=== PATIENT | female | born 1945 | race Caucasian/White ===

== ENCOUNTER 2017-07-19 07:46 | Emergency (ER) | payer MEDICARE, MEDICAID ==
[2017-07-19] MEDS ORDERED: oxyCOD/ACETAMIN 5 MG/325 MG TABLET PO STA (08:30)
--- NOTE | 2017-07-19 08:34 | ED Physician Documentation ---
History of Present Illness - Stated complaint Stated Complaint: L LEG PAIN - Chief complaint Chief Complaint: Ext Problem - Additonal information Additional information: hx from pt 72 female healthy insidious oonset L foot pain states it started three days ago intially felt like hot liquid on her lower leg and foot now localized to medial ankel and foot hurts to touch hurts to move no trauma no open wounds no fever no CP no SOA no calf swelling no hx same no hx gout or sciatica per pt Review of Systems Constitutional: denies: Fever Cardiac: denies: Chest pain / pressure Respiratory: denies: Dyspnea Skin: denies: Rash, Abrasion (s), Laceration (s) Musculoskeletal: reports: Extremity pain Neurologic: denies: Focal weakness, Numbness Endocrine: denies: Easy bruising / bleeding Immunocompromised: denies: Immunocompromised PD PAST MEDICAL HISTORY - Past Medical History Past Medical History: Yes Musculoskeletal: Osteoarthritis - Past Surgical History Past Surgical History: Yes - Present Medications Home Medications: Ambulatory Orders Medication Instructions Recorded Confirmed HYDROcod/ACETAM 5/325 [[place] 5/325] 1 - 2 ea PO Q6H PRN #15 tablet 12/10/15 diazePAM [Valium] 5 mg PO TID PRN #15 tablet 12/10/15 Oxycodone HCl/Acetaminophen 1 each PO Q6HR PRN #10 tablet 07/19/17 [Percocet 5-325 mg Tablet] predniSONE [Deltasone] 40 mg PO DAILY 5 Days 07/19/17 - Allergies Allergies/Adverse Reactions: Allergies Allergy/AdvReac Type Severity Reaction Status Date / Time No Known Drug Allergies Allergy Verified 12/10/15 20:21 - Social History Does the pt smoke?: No Smoking Status: Never smoker Does the pt drink ETOH?: No Does the pt have substance abuse?: No - Immunizations Immunizations are current?: Yes PD ED PE NORMAL - Vitals Vital signs reviewed: Yes - Cardiac Cardiac: RRR - Respiratory Respiratory: No respiratory distress, Clear bilaterally - Derm Derm: Other (see ext exam) - Extremities Extremities: Other (thigh and calf non tender no swelling, tender to palpate and slight erythema and edema over medial mall, ankle jt s effusion and able to be ranged s sig pain, also some TTP but without swelling or erythema to instep, no deformity, MSV intact) Results - Vitals Vitals: Vital Signs - 24 hr 07/19/17 07:57 Temperature 36.6 C Heart Rate 88 Respiratory 20 Rate Blood Pressure 137/106 H O2 Saturation 96 Oxygen O2 Source Room air - Rads (name of study) ankle Radiology: See rad report (nl) foot Radiology: See rad report (DJD 1st MT) PD MEDICAL DECISION MAKING - ED course ED course: insidious pain, initially diffuse now more loaclised the medial mall, some erythema and swelling but no fever streaking or open wound to suggest infection , feel gout and septic jt unlikely as pt is able to range ankle fairly well without sig pain and does not have an effusion does have arthritis on xray but pain is atypical for arthritis not really dermatoma or typical of neuro etiology will try prednsione for inflammation and percocet for pain and ask pt to see PMD or return to see me tomorrow night for a recheck Departure - Departure Disposition: Home, Self Care Clinical Impression: Pain in extremity Qualifiers: Extremity pain location: lower extremity Laterality: left Qualified Code(s): M79.605 - Pain in left leg Condition: Good Follow-Up: Vania Aguero ARNP [Primary Care Provider] - Prescriptions: Oxycodone HCl/Acetaminophen [Percocet 5-325 mg Tablet] 1 each PO Q6HR PRN #10 tablet PRN Reason: Severe Pain predniSONE [Deltasone] 40 mg PO DAILY 5 Days Comments: The xrays are fine - no fractures, just some arthritic changes The pain is not typical or sciatica There is some redness and swelling to the inside of the ankle, but the actual ankle joint does not seem to be involved so do not think this is an infected joint or gout. You have no wounds or fever to suggest a skin infection So at this point I am not sure what is causing the pain. For now I recommend we address the symptoms - i have prescribed steroids to decrease the inflammation and pain medication. Since the etiology is unclear, close follow up is going to be very important - it is not uncommon for us to see a patient with a disease process that is initially not clear but over time as symptoms progress, the diagnosis becomes apparent But I would like you to follow up with your PMD tomorrow for a recheck - or if you cannot see your PMD come back and see me after 8 PM tomorrow for a recheck Please also get your blood pressure rechecked - it was high today
[2017-07-19] MEDS ORDERED: oxyCOD/ACETAMIN 5 MG/325 MG TABLET PO ONE (08:45)
--- NOTE | 2017-07-19 09:25 | XRAY Preliminary Report ---
Exam: XR Foot 3 View LT IMPRESSION: Mild DJD first metatarsophalangeal joint [facility] SITE ID: [id number]
--- NOTE | 2017-07-19 09:25 | XRAY Preliminary Report ---
Exam: XR Ankle 3 View LT IMPRESSION: Normal ankle radiography. [facility] SITE ID: [id number]
--- NOTE | 2017-07-19 09:27 | XRAY Report ---
EXAM: LEFT ANKLE RADIOGRAPHY EXAM DATE: 07/19/2017 09:01 AM. CLINICAL HISTORY: Pain and swelling medially. COMPARISON: None. TECHNIQUE: 3 views. FINDINGS: Bones: Normal. No fractures or bone lesions. Joints: Normal. No effusion. No subluxations. The ankle mortise is normally aligned. Soft Tissues: Mild soft tissue swelling. IMPRESSION: Normal ankle radiography. [facility] Referring Provider Line: [phone] SITE ID: [id number]
--- NOTE | 2017-07-19 09:28 | XRAY Report ---
EXAM: LAST FOOT RADIOGRAPHY EXAM DATE: 07/19/2017 09:01 AM. CLINICAL HISTORY: Pain and swelling medially. COMPARISON: None. TECHNIQUE: 3 views. FINDINGS: Bones: Normal. No fractures or bone lesions. Joints: Osteophyte joint space narrowing first metatarsal phalangeal joint. No subluxations. Soft Tissues: Normal. No soft tissue swelling. IMPRESSION: Mild DJD first metatarsophalangeal joint [facility] Referring Provider Line: [phone] SITE ID: [id number]
[2017-07-19 10:11] VITALS: BP 132/64
== END 2017-07-19 10:12 | disposition home or self-care (01) ==
LOC: ED 07:46
DX: M79.605 Pain in left leg (principal)
CPT/HCPCS: 73610; 73630; 99283; 99284; A9270

== ENCOUNTER 2021-10-10 20:22 | Emergency (ER) | payer MEDICARE, MEDICAID ==
--- NOTE | 2021-10-10 20:36 | ED Physician Documentation ---
History of Present Illness - Stated complaint Stated Complaint: R FOOT TOE PX - Chief complaint Chief Complaint: Ext Problem - History obtained from History obtained from: Patient - History of Present Illness Timing: How many weeks ago (2) Pain level now: 8 Improved by: rest Worsened by: weight-bearing, palpation - Additonal information Additional information: c/o 2 weeks of atraumatic pain to the tip of the right 4th toe. Pain is worse with palpation, weight-bearing. She says she tried to see a burr grinder but her insurance did not cover this particular burr grinder. She says she made an appointment with PMD but that the appointment isn't until December. Review of Systems Constitutional: denies: Fever Musculoskeletal: reports: Extremity pain, Pain with weight bearing. denies: Extremity swelling, Joint swelling Neurologic: denies: Focal weakness, Numbness PD PAST MEDICAL HISTORY - Past Medical History Past Medical History: No Musculoskeletal: Osteoarthritis - Past Surgical History Past Surgical History: Yes - Present Medications Home Medications: Ambulatory Orders Medication Instructions Recorded Confirmed HYDROcod/ACETAM 5/325 [[place] 5/325] 1 - 2 ea PO Q6H PRN #15 tablet 12/10/15 diazePAM [Valium] 5 mg PO TID PRN #15 tablet 12/10/15 Oxycodone HCl/Acetaminophen 1 each PO Q6HR PRN #10 tablet 07/19/17 [Percocet 5-325 mg Tablet] predniSONE [Deltasone] 40 mg PO DAILY 5 Days tablet 07/19/17 cephALEXin [Keflex] 500 mg PO Q6H #28 cap 10/10/21 - Allergies Allergies/Adverse Reactions: Allergies Allergy/AdvReac Type Severity Reaction Status Date / Time No Known Drug Allergies Allergy Verified 10/10/21 20:26 - Social History Does the pt smoke?: No Smoking Status: Never smoker Does the pt drink ETOH?: No Does the pt have substance abuse?: No - Immunizations Immunizations are current?: Yes PD ED PE NORMAL - Vitals Vital signs reviewed: Yes - General General: Alert and oriented X 3, No acute distress, Well developed/nourished - Extremities Extremities: No edema, Other (right 4th toe: mild erythema adjacent to toe nail with TTP of pad of the toe. no obvious swelling, no fluctuance) Results - Vitals Vitals: Vital Signs - 24 hr 10/10/21 10/10/21 20:26 21:15 Temperature 36.5 C 36.8 C Heart Rate 100 64 Respiratory 18 18 Rate Blood Pressure 160/90 H 166/76 H O2 Saturation 96 94 Oxygen O2 Source Room air PD MEDICAL DECISION MAKING - ED course Complexity details: considered differential, d/w patient ED course: c/o 2 weeks of right 4th toe pain without injury. There is no obvious swelling but there is mild erythema adjacent to the lateral nail fold. There is TTP of pad of toe, although there isn't any swelling nor erythema over the toe pad. Will treat for possible paronychia with PO antibiotic. No evidence of drainable collection at this time Departure - Departure Disposition: 01 Home, Self Care Clinical Impression: Paronychia of fourth toe, right Condition: Good Instructions: ED Fingernail Infec Follow-Up: ALEAH SHIN, MSN, SENIOR PRINCIPAL [Primary Care Provider] - (within 3-5 days for recheck) Prescriptions: cephALEXin [Keflex] 500 mg PO Q6H #28 cap Comments: A prescription for cephalexin (antibiotic) has been electronically [facility] in [place]. Take ibuprofen or Aleve for the pain, following label instructions. Discharge Date/Time: 10/10/21 21:16
[2021-10-10] MEDS ORDERED: cephALEXin 250 MG CAPSULE PO STA (20:49)
[2021-10-10 21:16] VITALS: BP 166/76
== END 2021-10-10 21:16 | disposition home or self-care (01) ==
LOC: ED 20:22
DX: L03.031 Cellulitis of right toe (principal)
CPT/HCPCS: 99282; 99283; A9270

== ENCOUNTER 2021-12-17 08:33 | Outpatient (CLI) | payer MEDICARE, MEDICAID ==
[2021-12-17 08:58] LABS: BILIRUBIN,URINE NEGATIVE (NEGATIVE); GLUCOSE, URINE (UA) NEGATIVE (NEGATIVE); KETONES,URINE (UA) NEGATIVE (NEGATIVE); LEUKOCYTE ESTERASE, URINE NEGATIVE (NEGATIVE); NITRITE,URINE NEGATIVE (NEGATIVE); OCCULT BLOOD,URINE TRACE-INTA (NEGATIVE); PH,URINE 5.5 PH (5.0-7.5); PROTEIN,URINE NEGATIVE (NEGATIVE); UROBILINOGEN,URINE 0.2 (NORMAL) E.U./dL (NORMAL)
[2021-12-17 09:06] LABS: BASOPHILS % (AUTO) 0.4 %; EOSINOPHILS % (AUTO) 0.1 %; HCT - HEMATOCRIT 42.3 % (37.0-47.0); HGB - HEMOGLOBIN 14.2 g/dL (12.0-16.0); LYMPHOCYTES # (AUTO) 2.6 10^3/uL (1.5-3.5); LYMPHOCYTES % (AUTO) 32.6 %; MEAN CORPUSCULAR HEMOGLOBIN 31.4 pg (27.0-31.0); MEAN CORPUSCULAR HGB CONC 33.6 g/dL (32.0-36.0); MEAN CORPUSCULAR VOLUME 93.6 fL (81.0-99.0); MEAN PLATELET VOLUME 9.6 fL (7.9-10.8); MONOCYTES # (AUTO) 0.5 10^3/uL (0.0-1.0); MONOCYTES % (AUTO) 6.2 %; NEUTROPHILS # (AUTO) 4.8 10^3/uL (1.5-6.6); NEUTROPHILS % (AUTO) 60.2 %; PLT - PLATELET COUNT 251 10^3/uL (130-450); RED BLOOD COUNT 4.52 10^6/uL (4.20-5.40); RED CELL DISTRIBUTION WIDTH 12.5 % (12.0-15.0); WHITE BLOOD COUNT 7.9 x10^3/uL (4.8-10.8)
[2021-12-17 09:19] LABS: BACTERIA,URINE Few /HPF (None Seen); CLARITY,URINE CLEAR (CLEAR); RBC,URINE 0-5 /HPF (0-5); SQUAMOUS EPITHELIAL CELL,UR MOD Squamous (<= Few); WBC,URINE 0-3 /HPF (0-5)
[2021-12-17 09:27] LABS: THYROID STIMULATING HORMONE 3.4 uIU/mL (0.34-5.60)
[2021-12-17 10:06] LABS: ALBUMIN/GLOBULIN RATIO 1.3 (1.0-2.2); ALKALINE PHOSPHATASE 67 IU/L (42-121); ALT ALANINE AMINOTRANSFERASE 12 IU/L (10-60); AST ASPARTATE AMINOTRANSFERASE 14 IU/L (10-42); BILIRUBIN,TOTAL 0.6 mg/dL (0.2-1.0); BUN - BLOOD UREA NITROGEN 11 mg/dL (6-20); CALCIUM 8.7 mg/dL (8.5-10.3); CARBON DIOXIDE - CO2 28 mmol/L (21-32); CHLORIDE 99 mmol/L (101-111); CHOL/HDL RATIO 4.7 (<4.4); CHOLESTEROL 249 mg/dL; GFR - MDRD 54 (>89); GLUCOSE 95 mg/dL (70-100); HDL CHOLESTEROL 53 mg/dL; LDL CHOLESTEROL,CALCULATED 166 mg/dL; LDL/HDL RATIO 3.1 (<4.4); POTASSIUM 4.2 mmol/L (3.5-5.0); SODIUM 138 mmol/L (135-145); TOTAL PROTEIN 7.2 g/dL (6.7-8.2); TRIGLYCERIDES 148 mg/dL; VLDL CHOLESTEROL 30 mg/dL
== END 2021-12-17 08:34 | disposition home or self-care (01) ==
LOC: LAB 08:33
PROVIDERS: ATTEND Nurse Practitioner
DX: R53.83 Other fatigue (principal); Z13.220 Encounter for screening for lipoid disorders
CPT/HCPCS: 36415; 80053; 80061; 81001; 83721; 84443; 85025; 87086

== ENCOUNTER 2023-04-18 10:11 | Outpatient (CLI) | payer MEDICARE, MEDICAID ==
[2023-04-18 11:42] LABS: BASOPHILS % (AUTO) 0.3 %; EOSINOPHILS % (AUTO) 0.1 %; HCT - HEMATOCRIT 41.9 % (37.0-47.0); HGB - HEMOGLOBIN 13.7 g/dL (12.0-16.0); LYMPHOCYTES # (AUTO) 2.2 10^3/uL (1.5-3.5); LYMPHOCYTES % (AUTO) 24.5 %; MEAN CORPUSCULAR HEMOGLOBIN 32.2 pg (27.0-31.0); MEAN CORPUSCULAR HGB CONC 32.7 g/dL (32.0-36.0); MEAN CORPUSCULAR VOLUME 98.6 fL (81.0-99.0); MEAN PLATELET VOLUME 9.9 fL (7.9-10.8); MONOCYTES # (AUTO) 0.5 10^3/uL (0.0-1.0); MONOCYTES % (AUTO) 5.5 %; NEUTROPHILS # (AUTO) 6.3 10^3/uL (1.5-6.6); NEUTROPHILS % (AUTO) 69.3 %; PLT - PLATELET COUNT 302 10^3/uL (130-450); RED BLOOD COUNT 4.25 10^6/uL (4.20-5.40); RED CELL DISTRIBUTION WIDTH 12.5 % (12.0-15.0); WHITE BLOOD COUNT 9.2 x10^3/uL (4.8-10.8)
[2023-04-18 12:28] LABS: ALBUMIN 3.9 g/dL (3.2-5.5); ALBUMIN/GLOBULIN RATIO 1.4 (1.0-2.2); ALKALINE PHOSPHATASE 72 IU/L (42-121); ALT ALANINE AMINOTRANSFERASE 10 IU/L (10-60); AST ASPARTATE AMINOTRANSFERASE 13 IU/L (10-42); BILIRUBIN,TOTAL 0.6 mg/dL (0.2-1.0); BUN - BLOOD UREA NITROGEN 10 mg/dL (6-20); CALCIUM 8.7 mg/dL (8.5-10.3); CARBON DIOXIDE - CO2 29 mmol/L (21-32); CHLORIDE 105 mmol/L (101-111); CHOL/HDL RATIO 4.1 (<4.4); CHOLESTEROL 229 mg/dL; CREATININE 0.8 mg/dL (0.4-1.0); GFR - MDRD 69 (>89); GLUCOSE 89 mg/dL (70-100); HDL CHOLESTEROL 56 mg/dL; LDL CHOLESTEROL,CALCULATED 136 mg/dL; LDL/HDL RATIO 2.4 (<4.4); POTASSIUM 3.9 mmol/L (3.5-5.0); SODIUM 142 mmol/L (135-145); TOTAL PROTEIN 6.6 g/dL (6.7-8.2); TRIGLYCERIDES 184 mg/dL; VLDL CHOLESTEROL 37 mg/dL
== END 2023-04-18 10:12 | disposition home or self-care (01) ==
LOC: LAB.N 10:11
PROVIDERS: ATTEND Nurse Practitioner
DX: I10 Essential (primary) hypertension (principal); E78.5 Hyperlipidemia, unspecified
CPT/HCPCS: 36415; 80053; 80061; 83721; 85025

== ENCOUNTER 2024-04-24 10:53 | Outpatient (CLI) | payer MEDICARE, MEDICAID ==
[2024-04-24 11:09] LABS: BASOPHILS # (AUTO) 0.1 10^3/uL (0.0-0.1); BASOPHILS % (AUTO) 0.6 %; EOSINOPHILS % (AUTO) 0.5 %; HCT - HEMATOCRIT 41.7 % (37.0-47.0); HGB - HEMOGLOBIN 13.8 g/dL (12.0-16.0); LYMPHOCYTES # (AUTO) 2.3 10^3/uL (1.5-3.5); LYMPHOCYTES % (AUTO) 25.5 %; MEAN CORPUSCULAR HEMOGLOBIN 31.3 pg (27.0-31.0); MEAN CORPUSCULAR HGB CONC 33.1 g/dL (32.0-36.0); MEAN CORPUSCULAR VOLUME 94.6 fL (81.0-99.0); MEAN PLATELET VOLUME 9.4 fL (7.9-10.8); MONOCYTES # (AUTO) 0.6 10^3/uL (0.0-1.0); MONOCYTES % (AUTO) 6.2 %; NEUTROPHILS # (AUTO) 5.9 10^3/uL (1.5-6.6); PLT - PLATELET COUNT 282 10^3/uL (130-450); RED BLOOD COUNT 4.41 10^6/uL (4.20-5.40); RED CELL DISTRIBUTION WIDTH 11.9 % (12.0-15.0); WHITE BLOOD COUNT 8.8 x10^3/uL (4.8-10.8)
[2024-04-24 11:25] LABS: ALBUMIN 4.4 g/dL (3.2-5.5); ALBUMIN/GLOBULIN RATIO 1.9 (1.0-2.2); ALKALINE PHOSPHATASE 85 IU/L (42-121); ALT ALANINE AMINOTRANSFERASE 10 IU/L (10-60); AST ASPARTATE AMINOTRANSFERASE 12 IU/L (10-42); BILIRUBIN,TOTAL 0.4 mg/dL (0.2-1.0); BUN - BLOOD UREA NITROGEN 13 mg/dL (6-20); CALCIUM 9.5 mg/dL (8.5-10.3); CARBON DIOXIDE - CO2 26 mmol/L (21-32); CHLORIDE 106 mmol/L (101-111); CHOL/HDL RATIO 4.7 (<4.4); CHOLESTEROL 263 mg/dL; GFR - MDRD 53 (>89); GLUCOSE 98 mg/dL (74-104); HDL CHOLESTEROL 56 mg/dL; LDL CHOLESTEROL,CALCULATED 148 mg/dL; LDL/HDL RATIO 2.6 (<4.4); POTASSIUM 4.4 mmol/L (3.5-4.5); SODIUM 139 mmol/L (135-145); TOTAL PROTEIN 6.7 g/dL (6.4-8.9); TRIGLYCERIDES 295 mg/dL (48-352); VLDL CHOLESTEROL 59 mg/dL
[2024-04-24 11:40] LABS: THYROID STIMULATING HORMONE 2.45 uIU/mL (0.34-5.60)
== END 2024-04-24 10:54 | disposition home or self-care (01) ==
LOC: LAB 10:53
PROVIDERS: ATTEND Nurse Practitioner
DX: I10 Essential (primary) hypertension (principal); E78.5 Hyperlipidemia, unspecified; F32.A Depression, unspecified
CPT/HCPCS: 36415; 80053; 80061; 83721; 84443; 85025

== ENCOUNTER 2024-05-10 12:15 | Outpatient (CLI) | payer MEDICARE, MEDICAID ==
[2024-05-10 17:45] LABS: HCT - HEMATOCRIT 43.3 % (37.0-47.0); HGB - HEMOGLOBIN 14.8 g/dL (12.0-16.0); MEAN CORPUSCULAR HEMOGLOBIN 31.8 pg (27.0-31.0); MEAN CORPUSCULAR HGB CONC 34.2 g/dL (32.0-36.0); MEAN CORPUSCULAR VOLUME 93.1 fL (81.0-99.0); MEAN PLATELET VOLUME 10.4 fL (7.9-10.8); RED BLOOD COUNT 4.65 10^6/uL (4.20-5.40); RED CELL DISTRIBUTION WIDTH 11.9 % (12.0-15.0); WHITE BLOOD COUNT 8.5 x10^3/uL (4.8-10.8)
[2024-05-10 18:02] LABS: CREATININE 1.3 mg/dL (0.6-1.3); MAGNESIUM 1.8 mg/dL (1.7-2.3); POTASSIUM 4.3 mmol/L (3.5-4.5)
== END 2024-05-10 12:30 | disposition home or self-care (01) ==
LOC: LAB.N 12:15
PROVIDERS: ATTEND Nurse Practitioner
DX: R25.2 Cramp and spasm (principal)
CPT/HCPCS: 36415; 80048; 82550; 83735; 85027

== ENCOUNTER 2024-05-25 10:49 | Outpatient (CLI) | payer MEDICARE, MEDICAID ==
--- NOTE | 2024-05-27 14:14 | Ultrasound Report ---
PROCEDURE: Arterial Duplex Lwr Ext BL INDICATIONS: BILATERAL CLAUDICATION TECHNIQUE: Color and pulse Doppler interrogation was performed of both lower extremity arterial systems, with im age documentation. COMPARISON: None FINDINGS: Right lower extremity: Common femoral artery: 69 cm/sec, with triphasic flow. Deep femoral artery: 25 cm/sec, with monophasic flow. Proximal superficial femoral artery: 93 cm/sec, with biphasic, above baseline flow. Mid superficial femoral artery: 67 cm/sec, with biphasic, above baseline flow. Distal superficial femoral artery: 82 cm/sec, with monophasic flow. Popliteal artery: 43 cm/sec, with triphasic flow. Posterior tibial artery: 20 cm/sec, with monophasic flow. Anterior tibial artery/dorsalis pedis: 47/64 cm/sec, with monophasic/monophasic flow. Gonzalez-scale imaging description: Scattered atherosclerotic plaque. Left lower extremity: Common femoral artery: 68 cm/sec, with biphasic, above baseline flow. Deep femoral artery: 34 cm/sec, with monophasic flow. Proximal superficial femoral artery: 108 cm/sec, with triphasic flow. Mid superficial femoral artery: 88 cm/sec, with triphasic flow. Distal superficial femoral artery: 44 cm/sec, with biphasic flow. Popliteal artery: 43 cm/sec, with biphasic flow. Posterior tibial artery: 30 cm/sec, with monophasic flow. Anterior tibial artery/dorsalis pedis: 60/46 cm/sec, with monophasic/biphasic flow. Gonzalez-scale imaging description: Scattered atherosclerotic plaque. IMPRESSION: 1.Right lower extremity above the knee vasculature demonstrates no velocity shift to suggest a hemody namically significant stenosis; however, transition from multiphasic to monophasic waveforms in the m id to distal SFA may represent a developing stenosis. Monophasic waveforms in below the knee vasculat ure is compatible with microvascular disease. 2.Left lower extremity above the knee vasculature demonstrates multiphasic waveforms with no velocity shift to suggest a hemodynamically significant stenosis. Monophasic waveforms in below the knee vasc ulature is compatible with microvascular disease. Consider a CTA/MRA bilateral lower extremity runoff for further evaluation, at clinical discretion. Reviewed by: Chaz Red MD on 05/27/2024 2:13 PM PDT Approved by: Chaz Red MD on 05/27/2024 2:13 PM PDT Station ID: [id number]
== END 2024-05-25 10:50 | disposition home or self-care (01) ==
LOC: DI 10:49
PROVIDERS: ATTEND Nurse Practitioner
DX: I73.9 Peripheral vascular disease, unspecified (principal)
CPT/HCPCS: 93925

== ENCOUNTER 2025-02-10 13:03 | Inpatient (IN) ==
[2025-02-10 13:32] LABS: BASOPHILS % (AUTO) 0.5 %
[2025-02-10 13:36] LABS: HCT - HEMATOCRIT 39.8 % (37.0-47.0); HGB - HEMOGLOBIN 12.8 g/dL (12.0-16.0); LYMPHOCYTES % (AUTO) 6.4 %; MEAN CORPUSCULAR HEMOGLOBIN 30.9 pg (27.0-31.0); MEAN CORPUSCULAR HGB CONC 32.2 g/dL (32.0-36.0); MEAN CORPUSCULAR VOLUME 96.1 fL (81.0-99.0); MEAN PLATELET VOLUME 11.1 fL (7.9-10.8); MONOCYTES % (AUTO) 6.8 %; NEUTROPHILS % (AUTO) 84.3 %; PLT - PLATELET COUNT 166 10^3/uL (130-450); RED BLOOD COUNT 4.14 10^6/uL (4.20-5.40); RED CELL DISTRIBUTION WIDTH 13.3 % (12.0-15.0); WHITE BLOOD COUNT 24.2 x10^3/uL (4.8-10.8)
[2025-02-10 13:38] LABS: ALBUMIN 4.1 g/dL (3.2-5.5); ALBUMIN/GLOBULIN RATIO 1.7 (1.0-2.2); ALKALINE PHOSPHATASE 67 IU/L (42-121); ALT ALANINE AMINOTRANSFERASE 10 IU/L (10-60); AST ASPARTATE AMINOTRANSFERASE 17 IU/L (10-42); BILIRUBIN,TOTAL 0.7 mg/dL (0.2-1.0); BUN - BLOOD UREA NITROGEN 53 mg/dL (6-20); CARBON DIOXIDE - CO2 16 mmol/L (21-32); CHLORIDE 104 mmol/L (101-111); CREATININE 3.9 mg/dL (0.6-1.3); GFR - MDRD 11 (>89); GLUCOSE 118 mg/dL (74-104); POTASSIUM 4.1 mmol/L (3.5-4.5); SODIUM 135 mmol/L (135-145); TOTAL PROTEIN 6.5 g/dL (6.4-8.9)
[2025-02-10 13:39] LABS: ABNORMAL LYMPHS % (MANUAL) 0 %
[2025-02-10 13:40] LABS: LIPASE < 10 U/L (11-82)
[2025-02-10 14:06] LABS: BAND NEUTROPHILS % (MANUAL) 17 %; BASOPHILS # (MANUAL) 0.2 10^3/uL (0-0.1); BASOPHILS % (MANUAL) 1 %; DIFFERENTIAL COMMENT MANUAL DIFFERENTIAL; LYMPHOCYTES % (MANUAL) 3 %; MONOCYTES # (MANUAL) 1.5 10^3/uL (0.0-1.0); NEUTROPHILS # (MANUAL) 21.5 10^3/uL (1.5-6.6); PLATELET ESTIMATE, MANUAL NORMAL (130-450,000) (NORMAL); RBC MORPHOLOGY (MULTIPLE) 1+ ANISOCYTOSIS (NORMAL); REACTIVE LYMPHS % (MANUAL) 1 %
--- OUTSIDE RECORDS SUMMARY | 2025-02-10 14:35 | EXTERNAL MEDICAL SUMMARY RPT | Continuity of Care Document ---
Author Organization [place] Address [address] [place] [address] Phone Results/Labs test date facility value unit notes Result panel 1 LIPASE 2025-02-10 13:20 [facility] < 10 u/l As of May 2023 testing method has changed, this may include reference ranges. ABNORMAL LYMPHS % (MANUAL) 2025-02-10 13:20 [facility] 0 % (missing) EOSINOPHILS # (MANUAL) 2025-02-10 13:20 [facility] 0.0 10 3/ul (missing) BASOPHILS # (MANUAL) 2025-02-10 13:20 [facility] 0.2 10 3/ul (missing) BILIRUBIN,TOTAL 2025-02-10 13:20 [facility] 0.7 mg/dl As of May 2023 testing method has changed, this may include reference ranges. REACTIVE LYMPHS % (MANUAL) 2025-02-10 13:20 [facility] 1 % (missing) RBC MORPHOLOGY (MULTIPLE) 2025-02-10 13:20 [facility] 1+ ANISOCYTOSIS (missing ) (missing) LYMPHOCYTES # (MANUAL) 2025-02-10 13:20 [facility] 1.0 10 3/ul (missing) MONOCYTES # (MANUAL) 2025-02-10 13:20 [facility] 1.5 10 3/ul (missing) ALBUMIN/GLOBULIN RATIO 2025-02-10 13:20 [facility] 1.7 (missing ) (missing) ALT ALANINE AMINOTRANSFERASE 2025-02-10 13:20 [facility] 10 iu/l As of May 2023 testing method has changed, this may include reference ranges. TOTAL CELLS COUNTED 2025-02-10 13:20 [facility] 100 (missing ) (missing) CHLORIDE 2025-02-10 13:20 [facility] 104 mmol/l As of May 2023 testing method has changed, this may include reference ranges. GFR - MDRD 2025-02-10 13:20 [facility] 11 (missing ) Social History date description facility
--- NOTE | 2025-02-10 14:36 | ED Physician Documentation ---
History of Present Illness Stated complaint Stated Complaint: D/V/ Chief complaint Chief Complaint: Abd Pain History obtained from History obtained from: Patient History of Present Illness Timing: Prior to arrival Additonal information Additional information: Patient is an 79-year-old female presenting to the emergency department with diarrhea and vomiting abdominal pain in the epigastric region radiating to her back for about 3 days now. She notes she has having some large amounts of blood in her stool with the diarrhea but no black stools. She has not been able to eat or drink much due to her symptoms no fevers. She has history of appendectomy and cholecystectomy back in 1984. Symptoms started suddenly she denies ever having the symptoms before. She is a chronic smoker but no significant history of alcohol use. She has no pain radiating to her chest. No hematemesis associated with her symptoms. Meds/Allgy Home Medications Ambulatory Orders Medication Instructions Recorded Confirmed amlodipine 5 mg tablet (Norvasc) 5 mg PO QDAY 09/30/24 02/10/25 lisinopril 10 mg tablet 10 mg PO QDAY 09/30/24 02/10/25 naproxen sodium 220 mg capsule 220 mg PO Q8H PRN pain (scale 09/30/24 02/10/25 (Aleve) score 7-10) rosuvastatin 10 mg tablet 10 mg PO QDAY #90 tabs 10/01/24 02/10/25 Allergies Allergies Allergy/AdvReac Type Severity Reaction Status Date / Time No Known Drug Allergies Allergy Verified 02/10/25 13:09 PFSH Active Problems All Active Problems (Updated 02/10/25 @ 15:35 by Pat Andrade PA-C) Acute kidney injury (Acute) Nausea & vomiting (Acute) Gastroenteritis (Acute) Claudication of both lower extremities (Acute) Essential hypertension, benign (Chronic) History of colon polyps (Chronic) Preventative health care (Chronic) Fatigue (Chronic) Relapsing polychondritis (Chronic) Osteoarthritis (Chronic) Osteopenia (Chronic) Depression (Chronic) Tobacco dependency (Chronic) Hyperlipidemia (Chronic) Tumor of rectum (Chronic) Lumbar back pain with radiculopathy affecting lower extremity (Chronic) Gait abnormality (Chronic) Muscle spasm (Chronic) Chronic kidney disease, stage 3b (Chronic) Peripheral vascular disease (Chronic) Family History Family History (Updated 09/30/24 @ 13:53 by Nely Humphreys MA) Mother Diabetes Breast cancer Father CAD (coronary artery disease) Social History Social History (Updated 02/10/25 @ 14:36 by Shannan Muñoz RN) Smoking Status: Current every day smoker If you are a former smoker, when did you quit? (Date/Year): Smoking for 60 years How many cigarettes a day do you smoke? 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 Genitourinary no CVA tenderness Extremities normal to inspection Skin skin color normal, no rash and no lesions Results Vitals Vitals: Vital Signs - 24 hr 02/10/25 13:07 02/10/25 15:24 02/10/25 15:31 Temperature 36.6 C Pulse Rate 82 86 Respiratory Rate 20 22 Blood Pressure 166/100 H 112/54 L O2 Saturation 93 96 O2 Source Room air Room air Pain Intensity 8 5 5 02/10/25 16:21 02/10/25 17:00 02/10/25 18:45 Temperature Pulse Rate 89 106 H Respiratory Rate 20 22 Blood Pressure 92/40 L 81/45 L O2 Saturation 94 95 O2 Source Room air Room air Pain Intensity 5 3 4 02/10/25 19:00 Temperature Pulse Rate 106 H Respiratory Rate 20 Blood Pressure 128/59 L O2 Saturation 97 O2 Source Room air Pain Intensity 4 Oxygen O2 Source Room air Labs Labs: Laboratory Tests 02/10/25 02/10/25 02/10/25 13:20 14:25 16:08 WBC 24.2 H RBC 4.14 L Hgb 12.8 Hct 39.8 MCV 96.1 MCH 30.9 MCHC 32.2 RDW 13.3 Plt Count 166 MPV 11.1 H Neut # (Auto) Not Reportable Lymph # (Auto) Not Reportable [place] # (Auto) Not Reportable Eos # (Auto) Not Reportable Baso # (Auto) Not Reportable Absolute Nucleated RBC Not Reportable Total Counted 100 Band Neuts % (Manual) 17 H Reactive Lymphs % (Man) 1 Abnorm Lymph % (Manual) 0 Nucleated RBC % Not Reportable Neutrophils # (Manual) 21.5 H Lymphocytes # (Manual) 1.0 L Monocytes # (Manual) 1.5 H Eosinophils # (Manual) 0.0 Basophils # (Manual) 0.2 H Differential Comment MANUAL DIFFERENTIAL Platelet Estimate NORMAL (130-450,000) RBC Morph Micro Appear 1+ ANISOCYTOSIS Sodium 135 Potassium 4.1 Chloride 104 Carbon Dioxide 16 L Anion Gap 15.0 H BUN 53 H Creatinine 3.9 H Estimated GFR (MDRD) 11 L Glucose 118 H Lactic Acid 2.5 H Calcium 9.0 Total Bilirubin 0.7 AST 17 ALT 10 Alkaline Phosphatase 67 Total Protein 6.5 Albumin 4.1 Globulin 2.4 Albumin/Globulin Ratio 1.7 Lipase < 10 L Urine Color YELLOW Urine Clarity CLOUDY Urine pH 5.5 Ur Specific [place] 1.025 Urine Protein 30 H Urine Glucose (UA) NEGATIVE Urine Ketones TRACE Urine Occult Blood SMALL H Urine Nitrite NEGATIVE Urine Bilirubin SMALL H Urine Urobilinogen 0.2 (NORMAL) Ur Leukocyte Esterase TRACE H Urine RBC 0-5 Urine WBC 0-3 Ur Squamous Epith Cells MANY Squamous H Amorphous Sediment Marked Urine Bacteria Few Urine Mucus Marked Strands Ur Microscopic Review INDICATED Urine Culture Comments NOT INDICATED 02/10/25 02/10/25 16:45 18:24 WBC RBC Hgb Hct MCV MCH MCHC RDW Plt Count MPV Neut # (Auto) Lymph # (Auto) [place] # (Auto) Eos # (Auto) Baso # (Auto) Absolute Nucleated RBC Total Counted Band Neuts % (Manual) Reactive Lymphs % (Man) Abnorm Lymph % (Manual) Nucleated RBC % Neutrophils # (Manual) Lymphocytes # (Manual) Monocytes # (Manual) Eosinophils # (Manual) Basophils # (Manual) Differential Comment Platelet Estimate RBC Morph Micro Appear Sodium 136 Potassium 4.6 H Chloride 110 Carbon Dioxide 18 L Anion Gap 8.0 BUN 52 H Creatinine 3.4 H Estimated GFR (MDRD) 13 L Glucose 106 H Lactic Acid 1.8 Calcium 7.4 L Total Bilirubin 0.4 AST 14 ALT 8 L Alkaline Phosphatase 56 Total Protein 5.1 L Albumin 3.3 Globulin 1.8 L Albumin/Globulin Ratio 1.8 Lipase Urine Color Urine Clarity Urine pH Ur Specific [place] Urine Protein Urine Glucose (UA) Urine Ketones Urine Occult Blood Urine Nitrite Urine Bilirubin Urine Urobilinogen Ur Leukocyte Esterase Urine RBC Urine WBC Ur Squamous Epith Cells Amorphous Sediment Urine Bacteria Urine Mucus Ur Microscopic Review Urine Culture Comments PD Medical Decision Making ED course Complexity details: reviewed old records and reviewed results ED course: Patient is an 79-year-old female history of CKD, history of peripheral vascular disease hyperlipidemia presents to the emergency department with abdominal pain in epigastric region with nausea vomiting diarrhea going on for about 3 days now. History of smoking but no increased shortness of breath or difficulty breathing. Significant diarrhea with some large blood clots associated with that as well. Labs here in the emergency department obtained while patient was in triage show significant leukocytosis of 25. Hemoglobin is stable CMP shows significant ADRIANNA baseline close to 1.4, today patient is 3.9. Large anion gap of 15, most likely secondary to dehydration. CT abdomen pelvis: 1.Long segment bowel wall thickening in the colon is suspicious for a nonspecific colitis. 2.Stable ectasia of the abdominal aorta Chest X-ray:No acute cardiopulmonary process. Patient had episode of hypotension here in the ED second liter of fluids ordered according to sepsis guidelines patient would require 1700 cc she did receive 2 L here in the ED and blood pressure did stabilize. Patient had repeat CMP here shows improvement in her anion gap but persistent ADRIANNA creatinine remains at 3.4. UA shows no signs of infection her CT abdomen shows concerns for gastroenteritis given concerns for septic shock at this time with a lactic acid of 2.5 on arrival patient was started on antibiotics ciprofloxacin and Flagyl to cover for possible gastroenteritis or intra-abdominal process. Patient blood pressure remained stable and here in the ED she has received 2 L of fluids Zofran and tolerating eating and drinking here in the ED. She requires admission for dehydration and concerns for significant ADRIANNA. Patient agreeable with this plan. Patient boarding here in the ED awaiting beds at this time. Patient signed out to Dr. Solitario. Discharge Plan Discharge Patient Disposition: 66 [facility] DC/Xfer Condition: Stable Clinical Impression: Gastroenteritis, Nausea & vomiting, Acute kidney injury Prescriptions: No Action lisinopril 10 mg tablet 10 mg PO QDAY naproxen sodium [Aleve] 220 mg capsule 220 mg PO Q8H PRN (Reason: pain (scale score 7-10)) amlodipine [Norvasc] 5 mg tablet 5 mg PO QDAY rosuvastatin 10 mg tablet 10 mg PO QDAY Qty: 90 4RF Print Language: Ukrainian
[2025-02-10] MEDS: SODIUM CHLORIDE 0.9% 1,000 ML IV STA ×4 (14:58→23:07)
[2025-02-10] MEDS: ONDANSETRON 4 MG/2 ML VIAL IVP STA (15:00)
--- NOTE | 2025-02-10 15:21 | CT Report ---
PROCEDURE: CT Abdomen/Pelvis WO INDICATIONS: abdominal pain, large wbc TECHNIQUE: A CT scan of the abdomen and pelvis was performed without the use of intravenous contrast. Images we re recorded and evaluated at appropriate window settings. Reformats: coronal and sagittal. For radiat ion dose reduction, the following was used: automated exposure control, adjustment of mA and/or kV ac cording to patient size. COMPARISON: CTA 09/25/2024. FINDINGS: Image quality: Diagnostic. Lower chest: Unremarkable. Liver: No contour-deforming mass. Gallbladder: Status post cholecystectomy. Biliary tree: No intrahepatic or extrahepatic dilation, accounting for age. Spleen: No splenomegaly. Pancreas: No pancreatic ductal dilation. Adrenals: No adrenal nodule. Kidneys and ureters: No hydronephrosis. No contour-deforming mass. Stomach, bowel and peritoneum: Long segment bowel wall thickening involving the transverse, descendin g and sigmoid colon, which is suspicious for a nonspecific colitis. Small bowel loops and stomach are unremarkable. No pathologic free fluid. Lymph nodes: No central or retroperitoneal adenopathy. Vessels: Infrarenal abdominal aortic ectasia does not appear significantly changed when compared to t he prior CT angiogram. Reproductive organs: Unremarkable. Bladder: No abnormal bladder wall thickening. No calcified bladder stones. Pelvic lymph nodes: No adenopathy by size criteria. Bones: No aggressive osseous abnormality. Postsurgical changes at L3 through L5. Other: No significant ventral or inguinal hernia. 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 IMPRESSION: 1.Long segment bowel wall thickening in the colon is suspicious for a nonspecific colitis. 2.Stable ectasia of the abdominal aorta Reviewed by: Michael Cabello MD on 02/10/2025 3:20 PM PDT Approved by: Michael Cabello MD on 02/10/2025 3:20 PM PDT Station ID: [id number]
[2025-02-10] MEDS: MORPHINE 2 MG/ML CARPUJECT IVP STA (15:24)
--- NOTE | 2025-02-10 15:46 | XRAY Report ---
PROCEDURE: XR Chest 1V INDICATIONS: cough, congestion TECHNIQUE: One view of the chest was acquired. COMPARISON: 06/13/2016. FINDINGS: Surgical changes and devices: None. Lungs and pleura: No pleural effusions or pneumothorax. No consolidation. Mediastinum: Mediastinal contours appear normal. Heart size is normal. Bones and chest wall: No suspicious bony lesions. Overlying soft tissues appear unremarkable. IMPRESSION: No acute cardiopulmonary process. Reviewed by: Rashid Mueller MD on 02/10/2025 3:44 PM PDT Approved by: Rashid Mueller MD on 02/10/2025 3:44 PM PDT Station ID: [id number]
[2025-02-10 16:25] LABS: BILIRUBIN,URINE SMALL (NEGATIVE); GLUCOSE, URINE (UA) NEGATIVE (NEGATIVE); KETONES,URINE (UA) TRACE mg/dL (NEGATIVE); LEUKOCYTE ESTERASE, URINE TRACE (NEGATIVE); NITRITE,URINE NEGATIVE (NEGATIVE); OCCULT BLOOD,URINE SMALL (NEGATIVE); PH,URINE 5.5 PH (5.0-7.5); PROTEIN,URINE 30 mg/dL (NEGATIVE); UROBILINOGEN,URINE 0.2 (NORMAL) E.U./dL (NORMAL)
[2025-02-10 16:34] LABS: CLARITY,URINE CLOUDY (CLEAR)
[2025-02-10 16:36] LABS: AMORPHOUS SEDIMENT,UR Marked /LPF; BACTERIA,URINE Few /HPF (None Seen); MUCUS,URINE Marked Strands; RBC,URINE 0-5 /HPF (0-5); SQUAMOUS EPITHELIAL CELL,UR MANY Squamous (<= Few); WBC,URINE 0-3 /HPF (0-5)
[2025-02-10] MEDS: CIPROFLOXACIN 400 MG/200 ML 400 MG/200 ML BAG IV STA (17:15)
[2025-02-10] MEDS: metroNIDAZOLE 500 MG/100 ML 500 MG/100 ML BAG IV ONE (18:20)
[2025-02-10 18:49] LABS: ALBUMIN 3.3 g/dL (3.2-5.5); ALBUMIN/GLOBULIN RATIO 1.8 (1.0-2.2); BILIRUBIN,TOTAL 0.4 mg/dL (0.2-1.0); CALCIUM 7.4 mg/dL (8.5-10.3); CREATININE 3.4 mg/dL (0.6-1.3); POTASSIUM 4.6 mmol/L (3.5-4.5); TOTAL PROTEIN 5.1 g/dL (6.4-8.9)
[2025-02-10] MEDS ORDERED: ACETAMINOPHEN 500 MG TABLET PO PRN (21:27)
[2025-02-10] MEDS: ONDANSETRON 4 MG/2 ML VIAL IVP PRN (23:02)
--- NOTE | 2025-02-10 23:36 | ED Physician Documentation ---
ED Addendum Addendum Addendum: No changes during my shift, patient signed out to Dr. Bender. Discharge Plan Discharge Patient Disposition: [facility] DC/Xfer Condition: Stable Clinical Impression: Gastroenteritis, Nausea & vomiting, Acute kidney injury Prescriptions: No Action lisinopril 10 mg tablet 10 mg PO QDAY naproxen sodium [Aleve] 220 mg capsule 220 mg PO Q8H PRN (Reason: pain (scale score 7-10)) amlodipine [Norvasc] 5 mg tablet 5 mg PO QDAY rosuvastatin 10 mg tablet 10 mg PO QDAY Qty: 90 4RF Print Language: Gambian
[2025-02-11] MEDS: SODIUM CHLORIDE 0.9% 500 ML IV ONE ×2 (05:53→06:48)
[2025-02-11 06:03] LABS: BASOPHILS % (AUTO) 0.4 %; EOSINOPHILS % (AUTO) 0.1 %; HCT - HEMATOCRIT 32.7 % (37.0-47.0); HGB - HEMOGLOBIN 10.5 g/dL (12.0-16.0); LYMPHOCYTES % (AUTO) 5.6 %; MEAN CORPUSCULAR HEMOGLOBIN 30.8 pg (27.0-31.0); MEAN CORPUSCULAR HGB CONC 32.1 g/dL (32.0-36.0); MEAN CORPUSCULAR VOLUME 95.9 fL (81.0-99.0); MEAN PLATELET VOLUME 9.4 fL (7.9-10.8); MONOCYTES % (AUTO) 1.4 %; NEUTROPHILS % (AUTO) 89.6 %; PLT - PLATELET COUNT 175 10^3/uL (130-450); RED BLOOD COUNT 3.41 10^6/uL (4.20-5.40); RED CELL DISTRIBUTION WIDTH 13.6 % (12.0-15.0); WHITE BLOOD COUNT 8.4 x10^3/uL (4.8-10.8)
[2025-02-11 06:13] LABS: ABNORMAL LYMPHS % (MANUAL) 0 %
[2025-02-11 06:16] LABS: CALCIUM 7.5 mg/dL (8.5-10.3); CREATININE 2.7 mg/dL (0.6-1.3); POTASSIUM 4.2 mmol/L (3.5-4.5)
[2025-02-11 06:52] LABS: BAND NEUTROPHILS % (MANUAL) 10 %; EOSINOPHILS # (MANUAL) 0.1 10^3/uL (0-0.7); LYMPHOCYTES # (MANUAL) 0.4 10^3/uL (1.5-3.5); LYMPHOCYTES % (MANUAL) 5 %; MONOCYTES # (MANUAL) 0.2 10^3/uL (0.0-1.0); NEUTROPHILS # (MANUAL) 7.7 10^3/uL (1.5-6.6)
[2025-02-11 06:53] LABS: DIFFERENTIAL COMMENT MANUAL DIFFERENTIAL; PLATELET ESTIMATE, MANUAL NORMAL (130-450,000) (NORMAL); PLATELET MORPHOLOGY NORMAL APPEARANCE (NORMAL); RBC MORPHOLOGY (MULTIPLE) NORMAL APPEARANCE (NORMAL); WBC MORPHOLOGY (MULTIPLE) NORMAL APPEARANCE (NORMAL)
[2025-02-11] MEDS: PANTOPRAZOLE 40 MG TABLET PO SCH (06:54)
[2025-02-11 07:16] LABS: B. PARAPERTUSSIS- RESP PCR PAN NOT DETECTED; B. PERTUSSIS- RESP PCR PANEL NOT DETECTED; C. PNEUMONIAE- RESP PCR PANEL NOT DETECTED; CORONAVIRUS 229E-RESP PCR NOT DETECTED; CORONAVIRUS HKU1-RESP PCR NOT DETECTED; CORONAVIRUS NL63-RESP PCR NOT DETECTED; CORONAVIRUS OC43-RESP PCR NOT DETECTED; HUMAN METAPNEUMOVIRUS NOT DETECTED; INFLUENZA A- RESP PCR PANEL NOT DETECTED; INFLUENZA B - RESP PCR PANEL NOT DETECTED; M. PNEUMONIAE- RESP PCR PANEL NOT DETECTED; PARAINFLUENZA VIRUS 1 NOT DETECTED; PARAINFLUENZA VIRUS 2 NOT DETECTED; PARAINFLUENZA VIRUS 4 NOT DETECTED; RHINOVIRUS/ENTEROVIRUS NOT DETECTED; RSV- RESP PCR PANEL NOT DETECTED; SARS-CoV-2 -RESP PCR PANEL NOT DETECTED
--- NOTE | 2025-02-11 07:16 | ED Physician Documentation ---
ED Addendum Addendum Addendum: Patient endorsed to me at 11pm shift change, boarding for admission for gastroenteritis with dehydration induced tiki. she has sendout stool studies pending and is being treated with cipro/flagyl. Patient endorsed to Dr. Win at 7am shift change. Discharge Plan Discharge Patient Disposition: 66 [facility] DC/Xfer Condition: Stable Clinical Impression: Gastroenteritis, Nausea & vomiting, Acute kidney injury Prescriptions: No Action lisinopril 10 mg tablet 10 mg PO QDAY naproxen sodium [Aleve] 220 mg capsule 220 mg PO Q8H PRN (Reason: pain (scale score 7-10)) amlodipine [Norvasc] 5 mg tablet 5 mg PO QDAY rosuvastatin 10 mg tablet 10 mg PO QDAY Qty: 90 4RF Print Language: Mauritian
[2025-02-11] MEDS: CIPROFLOXACIN 400 MG/200 ML 400 MG/200 ML BAG IV ONE (07:52)
[2025-02-11] MEDS: CIPROFLOXACIN 400 MG/200 ML 400 MG/200 ML BAG IV SCH (07:55)
[2025-02-11] MEDS: metroNIDAZOLE 500 MG/100 ML 500 MG/100 ML BAG IV SCH (09:00)
[2025-02-11] MEDS: DIPHENOX/ATROPINE 2.5/0.025 MG TABLET PO STA (09:00)
[2025-02-11] MEDS: LACTATED RINGERS 1,000 ML IV STA (09:00)
--- OUTSIDE RECORDS SUMMARY | 2025-02-11 11:53 | EXTERNAL MEDICAL SUMMARY RPT | Continuity of Care Document ---
Author Organization [place] Address [address] [place] [address] Phone Results/Labs test date facility value unit [...] reference ranges. GFR - MDRD 2025-02-10 13:20 [facility] 11 (missing ) Social History date description facility
[2025-02-11] MEDS ORDERED: ONDANSETRON ODT 4 MG TABLET TL PRN (12:03)
--- NOTE | 2025-02-11 12:39 | PHARMACY PROGRESS NOTE ---
Best Possible Medication History Admit Date and Time: 02/11/25 [id number] Home Medications Medication Instructions Recorded Confirmed Type lisinopril 10 mg tablet 10 mg PO DAILY 09/30/24 02/11/25 History naproxen sodium 220 mg capsule 220 mg PO Q8H PRN pain (scale 09/30/24 02/10/25 History (Aleve) score 7-10) carboxymethylcellulose sodium 1 % 1 drp ophthalmic (eye) DAILY PRN 02/11/25 02/11/25 History eye drops dry eye(s) doxylamine succinate 25 mg tablet 25 mg PO HS PRN sleep 02/11/25 02/11/25 Histor y (Unisom (doxylamine)) hydrochlorothiazide 12.5 mg tablet 12.5 mg PO DAILY 02/11/25 02/11/25 History rosuvastatin 10 mg tablet 10 mg PO DAILY 02/11/25 02/11/25 History Processed by: Pharmacy Medications reviewed in ED?: No Medication History completed: Yes Patient Interview: Completed Secondary Source(s): Insurance records [facility] Statement: As the person ultimately responsible for medication therapy, providers are able to order a medication from an existing home medication list in [facility] via the "Reconcile Routine" prior to Confirmation of that medication by desktop support associate. Such practice is discouraged except when the physician, in their clinical judgment, deems that a medical need exists for a medication without regard to previous use.
[2025-02-11] MEDS: NOREPINEPHRINE/0.9 % NS 8 MG/250 ML BAG IV SCH (13:56)
[2025-02-11] MEDS: HEPARIN 5,000 UNIT/ML VIAL SUBQ SCH (13:56)
--- NOTE | 2025-02-11 14:54 | ANESTHESIA PROCEDURE NOTE ---
Anesth Central Line Template Central Line Central Line Preparation: Consent Obtained, Time out completed, Ultrasound used and Sterile prep and drape Central line location: Right IJ Central line type: Triple lumen Central line catheter tip site resides: Superior vena cava (SVC) Central line aftercare: Chlorhexidine disc placed, Secured, Placement confirmed, No pneumothorax, No complications and Pt tolerated well Other Info/Details: conesent obtained by pt in room. Chloroprep used. Sterile gown, gloves, mask and drapes used. US used to find the RIJ, modified seldinger technique used to Ac cess the Right IJ. Wire advanced with ease, Catheter advanced over the wire to 15cm at skin. Positive blood return, all lines flushed x3. CXR obtained to confirm placement in SVC.
--- NOTE | 2025-02-11 15:36 | XRAY Report ---
PROCEDURE: XR Chest for Line Placement INDICATIONS: Central line placement TECHNIQUE: One view of the chest was acquired. COMPARISON: Chest radiograph 02/10/2025. FINDINGS: Surgical changes and devices: Venous catheter with distal tip projecting over the mid SVC. Lungs and pleura: Volumes are slightly decreased compared to prior radiograph. Bibasilar atelectasis. No focal dense airspace consolidation. No significant pleural effusion or pneumothorax. Mediastinum: Mediastinal contours appear normal. Heart size is normal. Bones and chest wall: No suspicious bony lesions. Overlying soft tissues appear unremarkable. IMPRESSION: Interval placement of right central venous catheter with distal tip injecting over the mid SVC. Compared to prior radiograph 02/10/2025, lung volumes are slightly decreased with mild bibasilar atelec tasis. Reviewed by: Carmella Charles MD, PhD on 02/11/2025 3:34 PM PDT Approved by: Carmella Charles MD, PhD on 02/11/2025 3:34 PM PDT Station ID: [id number]
[2025-02-11] MEDS ORDERED: LORazepam 2 MG/ML VIAL IVP PRN (16:19)
--- NOTE | 2025-02-11 16:22 | HISTORY & PHYSICAL EXAMINATION ---
Chief Complaint Chief Complaint Chief Complaint: Colitis History of Present Illness Admitted From Admitted From:: Emergency Department History of Present Illness HPI Comment/Other: Fany Ohara is a 79-year-old female presenting with worsening nausea, vomiting, and diarrhea that began 5 days ago. She reports noticing a large amount of blood in her diarrhea. She denies recent changes to diet. She has been eating at home and neighbor occasionally brings her food. She denies any known contact with sick people. Associated symptoms include abdominal tenderness and poor appetite. She reports that she has had similar episodes of abdominal pain and discomfort in the past. She reports that these episodes began following the of her three children in three subsequent years. Patient also endorses a previous diagnosis of spastic colon. Review of most recent PCP note does not mention this diagnosis. Past medical history includes history of CKD 3B, bilateral claudication, depression, hypertension, hyperlipidemia, low back pain with bilateral radiculopathy, muscle spasms, osteoarthritis, osteopenia, peripheral vascular disease s/p angioplasty and stenting, history of polychondritis that is currently in remission, tobacco dependency, and history of carcinoid rectal tumor. Patient is a current smoker. She endorses smoking half a pack per day, and she began smoking at 18 years old. Patient denies excessive alcohol use and any illicit drug use. Patient lives alone in an apartment in [place]. She has two sons that live locally and one son who lives in [place]. She states that her sons check-in on her regularly. In her free time, she enjoys doing puzzles. Son and [id number], who live in [place], at bedside. Meds/Allgy Home Medications Ambulatory Orders Medication Instructions Recorded Confirmed lisinopril 10 mg tablet 10 mg PO DAILY 09/30/24 02/11/25 naproxen sodium 220 mg capsule 220 mg PO Q8H PRN pain (scale 09/30/24 02/10/25 (Aleve) score 7-10) carboxymethylcellulose sodium 1 % 1 drp ophthalmic (eye) DAILY PRN 02/11/25 02/11/25 eye drops dry eye(s) doxylamine succinate 25 mg tablet 25 mg PO HS PRN sleep 02/11/25 02/11/25 (Unisom (doxylamine)) hydrochlorothiazide 12.5 mg tablet 12.5 mg PO DAILY 02/11/25 02/11/25 rosuvastatin 10 mg tablet 10 mg PO DAILY 02/11/25 02/11/25 Allergies Allergies Allergy/AdvReac Type Severity Reaction Status Date / Time No Known Drug Allergies Allergy Verified 02/10/25 13:09 COUNT INCLUDES THE [facility] Active Problems All Active Problems (Updated 02/11/25 @ 17:42 by Venus Dennison) Poorly fitting dentures (Acute) Smoking 1/2 pack a day or less (Acute) Hypotension (Acute) Colitis (Acute) Acute kidney injury (Acute) Nausea & vomiting (Acute) Gastroenteritis (Acute) Claudication of both lower extremities (Acute) Essential hypertension, benign (Chronic) History of colon polyps (Chronic) Preventative health care (Chronic) Fatigue (Chronic) Relapsing polychondritis (Chronic) Osteoarthritis (Chronic) Osteopenia (Chronic) Depression (Chronic) Tobacco dependency (Chronic) Hyperlipidemia (Chronic) Tumor of rectum (Chronic) Lumbar back pain with radiculopathy affecting lower extremity (Chronic) Gait abnormality (Chronic) Muscle spasm (Chronic) Chronic kidney disease, stage 3b (Chronic) Peripheral vascular disease (Chronic) Family History Family History Mother Diabetes Breast cancer Father CAD (coronary artery disease) Social History Social History (Updated 02/10/25 @ 14:36 by Shannan Muñoz RN) Smoking Status: Current every day smoker If you are a former smoker, when did you quit? (Date/Year): Smoking for 60 years How many cigarettes a day do you smoke? 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 Are you following a diet prescribed by a doctor: No Are you following a special diet: No POLST Patient has POLST: No POLST Status: DNR Review of Systems Status of ROS: 10 or more systems reviewed and unremarkable except as noted in history and below Constitutional Reports: Fatigue, Weakness and Poor appetite Ears, nose, mouth, and throat Reports: Other (Poor fitting dentures causing difficulty with speech and chewing) Gastrointestinal Reports: Abdominal pain, Nausea, Vomiting, Poor appetite, Diarrhea and Melena Musculoskeletal Reports: Back pain and Muscle cramps (in bilateral lower extremities) Endocrine Reports: Fatigue Prior Level of Functionality: Lives alone in apartment in [place]. She is fully independent with feeding and dressing ADLs. She uses a walker for mobility assistance at times. 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 Her family provides assistance with transportation and grocery shopping. She reports occasionally riding the bus for transportation. Exam Exam Vital Signs: Vital Signs x48h Temp Pulse Pulse Resp BP BP Pulse Ox 02/11/25 19:00 91 22 109/64 91 L 02/11/25 18:00 88 19 121/61 92 02/11/25 17:00 100 23 109/62 93 02/11/25 16:00 37.1 C 02/11/25 16:00 86 20 112/62 94 02/11/25 15:00 93 16 118/72 94 02/11/25 15:00 91 24 115/73 95 02/11/25 12:10 37.0 C 88 20 80/62 L 97 02/11/25 12:00 91 17 101/43 L 98 O2 Flow Rate 02/11/25 19:00 02/11/25 18:00 02/11/25 17:00 02/11/25 16:00 02/11/25 16:00 02/11/25 15:00 02/11/25 15:00 02/11/25 12:10 2 02/11/25 12:00 Constitutional Frail, elderly female laying in bed; appear anxious with frequent gesticulating movements of head and neck as she speaks HENMT normocephalic Loose dentures impairing patient's speech causing her to lisp and slur Eyes PERRL, EOMs intact bilaterally and conjunctivae normal Neck/C-Spine visual inspection normal and trachea midline Respiratory Bilateral wheezes to auscultation Cardiovascular normal heart rate noted and regular rhythm noted Gastrointestinal abdomen soft to palpation (distended) and nontender to palpation slightly distended; hypoactive bowel sounds Genitourinary bladder normal to palpation Extremities normal to inspection, normal to palpation and no tenderness Neurology no movement abnormality noted and no focal motor deficit noted Psychiatry mental status grossly normal, oriented x3 and cooperative Skin skin color normal Skin is dry, reduced skin turgor. Conclusion/Plan Problem List (1) Colitis: Plan: Patient admitted with nausea, vomiting, abdominal tenderness, and diarrhea with blood present due to colitis. CT abdomen/pelvis completed on 02/10/25 showed "long segment bowel wall thickening involving the transverse, descending and sigmoid colon" suspicious for nonspecific colitis. Differential diagnosis includes colitis secondary to infectious source versus ischemic colitis. Unable to identify precipitating ischemic event in history and cannot order CTA due to elevated creatinine. Stool cultures pending. Day 1 of IV metronidazole q8hr and ciprofloxacin daily. PO pantoprazole continued. I ordered ondansetron PRN for nausea/vomiting. Leukocytosis resolving. WBC 24.2 in ED on 02/10/25 trending downward to 8.4 on 02/11/25. Hgb/Hct trending downward at 10.5/32.7 - will continue to monitor with daily labs. (2) Hypotension: Plan: Hypotension likely due to volume depletion as a result of fluid loss/volume depletion from diarrhea secondary to colitis. Upon admission to the floor, patient became hypotensive at 80/62. Decision was made to upgrade the patient to ICU status and start levophed gtt as patient has received multiple boluses (intake of 7,500mL within the past 24 hours) for episodes of hypotension in the ED. Anesthesia consulted to obtain central line access. Blood pressure has since improved to 109/62 at 17:00, requiring 6mcg/min of levophed. Qualifiers: Hypotension type: other hypotension type Qualified Code(s): I95.89 - Other hypotension (3) Acute kidney injury: Plan: Acute kidney injury secondary to severe dehydration/volume depletion as a result of diarrhea due to colitis. 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 Creatinine 3.9 in ED on 02/10/25. Review of chart shows prior to this admission, most recent creatinine was 1.4 on 09/13/24. Patient's creatinine is trending downward - most recent creatinine drawn today was 2.7. Will continue to monitor with daily labs. (4) Smoking 1/2 pack a day or less: Plan: Patient endorses smoking half a pack per day. She began smoking when she was 18 years old. I ordered a daily nicotine patch. Patient is visibly anxious during assessment. I ordered PRN IV Ativan. Discussed with family at the bedside who state that patient has previously required anxiolytic while admitted to the hospital. (5) Poorly fitting dentures: Plan: Patient's speech impaired due to ill-fitting dentures making it difficult to understand history. Patient's states that she is also having difficulty chewing and needs home denture adhesive cream. Plan Continue IV antibiotics for colitis. Continue to monitor acute kidney injury secondary to dehydration/volume depletion. Continue to treat volue depletion with IV fluids as needed. Levophed gtt for hypotension with parameters of MAP>or =65. Lab Results 02/11/25 05:52 02/11/25 05:52 Family History Family History Family History Comment/Other: Son with past medical history of pneumonia, osteoarthritis, rheumatoid arthritis, hernias. Son with past medical history of stroke, prediabetes, and CHF.
[2025-02-11] MEDS: NICOTINE 7 MG PATCH TOP SCH (16:53)
[2025-02-11] MEDS: SODIUM CHLORIDE FLUSH 0.9% 10 ML SYRINGE IVP SCH (16:53)
[2025-02-11] MEDS: ACETAMINOPHEN 325 MG TABLET PO PRN (19:47)
[2025-02-12] MEDS: SODIUM CHLORIDE FLUSH 0.9% 10 ML SYRINGE IVP PRN (00:41)
[2025-02-12] MEDS: HYDROcod/ACETAM 5/325 MG TABLET PO PRN (04:15)
[2025-02-12 06:01] LABS: BASOPHILS # (AUTO) 0.1 10^3/uL (0.0-0.1); BASOPHILS % (AUTO) 0.5 %; EOSINOPHILS # (AUTO) 0.2 10^3/uL (0.0-0.7); EOSINOPHILS % (AUTO) 1.4 %; HCT - HEMATOCRIT 28.6 % (37.0-47.0); HGB - HEMOGLOBIN 9.2 g/dL (12.0-16.0); LYMPHOCYTES # (AUTO) 2.2 10^3/uL (1.5-3.5); LYMPHOCYTES % (AUTO) 16.5 %; MEAN CORPUSCULAR HEMOGLOBIN 31.3 pg (27.0-31.0); MEAN CORPUSCULAR HGB CONC 32.2 g/dL (32.0-36.0); MEAN CORPUSCULAR VOLUME 97.3 fL (81.0-99.0); MEAN PLATELET VOLUME 9.7 fL (7.9-10.8); MONOCYTES # (AUTO) 0.6 10^3/uL (0.0-1.0); MONOCYTES % (AUTO) 4.4 %; NEUTROPHILS # (AUTO) 10.2 10^3/uL (1.5-6.6); NEUTROPHILS % (AUTO) 76.7 %; PLT - PLATELET COUNT 169 10^3/uL (130-450); RED BLOOD COUNT 2.94 10^6/uL (4.20-5.40); RED CELL DISTRIBUTION WIDTH 13.9 % (12.0-15.0); WHITE BLOOD COUNT 13.3 x10^3/uL (4.8-10.8)
[2025-02-12 06:09] LABS: ADENOVIRUS F 40/41 Not Detected (Not Detected); ASTROVIRUS Not Detected (Not Detected); C DIFFICILE TOXIN A/B Not Detected (Not Detected); CAMPYLOBACTER Not Detected (Not Detected); CRYPTOSPORIDIUM Not Detected (Not Detected); CYCLOSPORA CAYETANENSIS Not Detected (Not Detected); ENTAMOEBA HISTOLYTICA Not Detected (Not Detected); ENTEROAGGREGATIVE E COLI Not Detected (Not Detected); ENTEROPATHOGENIC E COLI Not Detected (Not Detected); ENTEROTOXIGENIC E COLI Not Detected (Not Detected); GIARDIA LAMBLIA Not Detected (Not Detected); NOROVIRUS GI/GII Not Detected (Not Detected); PLESIOMONAS SHIGELLOIDES Not Detected (Not Detected); ROTAVIRUS A Not Detected (Not Detected); SALMONELLA Not Detected (Not Detected); SAPOVIRUS Not Detected (Not Detected); SHIGA-TOXIN-PRODUCING E COLI Not Detected (Not Detected); SHIGELLA/ENTEROINVASIVE E COLI Not Detected (Not Detected); VIBRIO Not Detected (Not Detected); VIBRIO CHOLERAE Not Detected (Not Detected); YERSINIA ENTEROCOLITICA Not Detected (Not Detected)
[2025-02-12 06:20] LABS: CALCIUM 7.7 mg/dL (8.5-10.3); CREATININE 2.2 mg/dL (0.6-1.3); POTASSIUM 4.3 mmol/L (3.5-4.5)
[2025-02-12] MEDS ORDERED: ENOXAPARIN 40 MG/0.4 ML SYRINGE SUBQ SCH (09:00)
[2025-02-12] MEDS: CIPROFLOXACIN 400 MG/200 ML 400 MG/200 ML BAG IV SCH (09:19)
--- NOTE | 2025-02-12 12:59 | PROVIDER PROGRESS NOTE ---
Subjective Subjective Subjective: Patient is resting comfortably in bed. She states that she wants to go home. She reports that she is hungry but has no appetite for the hospital food and prefers her home-cooking. Patient is unable to tell me what food she would prefer to have. Denies any current nausea, vomiting, or abdominal pain. In afternoon, patient's son and [id number] at bedside. Current Medications Current Medications Current Medications: Current Medications Generic Name Dose Route Start Last Admin Trade Name Freq PRN Reason Stop Dose Admin Acetaminophen 650 mg 02/11/25 12:03 02/11/25 19:47 Acetaminophen 325 Mg Tablet PO 650 mg Q4HR PRN Administration Pain 1 to 4, or Fever Hydrocodone Bitart/Acetaminophen 1 tab 02/11/25 12:03 02/12/25 10:43 Hydrocod/Acetam 5/325 Mg Tablet PO 1 tab Q4HR PRN Administration Pain 5 to 7 Heparin Sodium (Porcine) 5,000 unit 02/11/25 13:00 02/12/25 09:19 Heparin 5,000 Unit/Ml Vial SUBQ 5,000 unit BID ELOISE Administration Metronidazole 500 mg in 100 mls @ 100 mls/hr 02/11/25 08:00 02/12/25 09:58 Flagyl 500 Mg/100 Ml IV Infused Q8H ELOISE Infusion Norepinephrine/Sodium Chloride 8 mg in 250 mls @ 15 mls/hr 02/11/25 14:00 02/12/25 10:24 Levophed 8 Mg/250-0.9% Nacl IV Infused .[id number] ELOISE Titration Protocol 8 MCG/MIN Ciprofloxacin 400 mg in 200 mls @ 200 mls/hr 02/12/25 09:00 02/12/25 09:58 Cipro 400 Mg/200 Ml IV Infused Q24H ELOISE Infusion Lorazepam 0.5 mg 02/11/25 16:19 Lorazepam 2 Mg/Ml Vial IVP Q2H PRN Anxiety Nicotine 1 patch 02/11/25 16:20 02/12/25 09:18 Nicotine 7 Mg Patch TOP 1 patch DAILY ELOISE Administration Ondansetron HCl 4 mg 02/11/25 12:03 Ondansetron Odt 4 Mg Tablet TL Q6HR PRN Nausea / Vomiting Ondansetron HCl 4 mg 02/11/25 12:03 Ondansetron 4 Mg/2 Ml Vial IVP Q6HR PRN Nausea / Vomiting Pantoprazole Sodium 40 mg 02/11/25 07:00 02/12/25 09:19 Pantoprazole 40 Mg Tablet PO 40 mg QDAC ELOISE Administration Sodium Chloride 10 ml 02/11/25 12:03 02/12/25 05:23 Sodium Chloride Flush 0.9% 10 Ml Syringe IVP 10 ml PRN PRN Administration NEEDED PER PROVIDER ORDERS Sodium Chloride 10 ml 02/11/25 17:00 02/12/25 09:19 Sodium Chloride Flush 0.9% 10 Ml Syringe IVP 10 ml 0100,0900,1700 ELOISE Administration Objective Vital Signs/Intake & Output Reviewed Vital Signs: Yes Vital Signs: Vital Signs x48h Temp Pulse Resp BP Pulse Ox 02/12/25 10:00 70 16 107/57 L 93 02/12/25 09:00 87 22 95/54 L 94 02/12/25 08:00 80 20 109/53 L 95 02/12/25 07:00 86 18 110/51 L 93 02/12/25 06:00 79 21 100/57 L 94 02/12/25 05:30 75 19 99/59 L 95 02/12/25 05:05 75 19 88/52 L 93 02/12/25 04:00 36.5 C 02/12/25 04:00 85 21 119/66 94 Intake & Output: Intake & Output 02/09/25 02/10/25 02/11/25 02/12/25 23:59 23:59 23:59 23:59 Intake Total 3200 / 3200 4501 / 4501 1249 / 1249 Output Total 400 / 400 550 / 550 Balance 3200 / 3200 4101 / 4101 699 / 699 Weight (kg) 58.967 kg 63.5 kg Objective General Appearance: positive No acute distress Eyes Bilateral: positive Normal inspection ENT: positive ENT inspection nml Neck: positive Nml inspection Respiratory: positive Chest non-tender, No respiratory distress and Wheezes Cardiovascular: positive Regular rate & rhythm Abdomen: positive Tenderness (Left-side, LLQ>LUQ) and Other (Hypoactive bowel sounds) Back: positive Nml inspection Skin: positive Color nml Extremities: positive Non-tender and Nml appearance Neurologic/Psychiatric: positive Oriented x3 Lab Results 02/12/25 05:20 02/12/25 05:20 Other Labs: Lab Results x24hrs 02/12/25 02/11/25 02/10/25 Range/Units 05:20 16:30 02:30 WBC 13.3 H (4.8-10.8) x10^3/uL RBC 2.94 L (4.20-5.40) 10^6/uL Hgb 9.2 L (12.0-16.0) g/dL Hct 28.6 L (37.0-47.0) % MCV 97.3 (81.0-99.0) fL MCH 31.3 H (27.0-31.0) pg MCHC 32.2 (32.0-36.0) g/dL RDW 13.9 (12.0-15.0) % Plt Count 169 (130-450) 10^3/uL MPV 9.7 (7.9-10.8) fL Neut # (Auto) 10.2 H (1.5-6.6) 10^3/uL Lymph # (Auto) 2.2 (1.5-3.5) 10^3/uL Lares # (Auto) 0.6 (0.0-1.0) 10^3/uL Eos # (Auto) 0.2 (0.0-0.7) 10^3/uL Baso # (Auto) 0.1 (0.0-0.1) 10^3/uL Absolute Nucleated RBC 0.00 x10^3/uL Nucleated RBC % 0.0 /100WBC Sodium 141 (135-145) mmol/L Potassium 4.3 (3.5-4.5) mmol/L Chloride 116 H (101-111) mmol/L Carbon Dioxide 18 L (21-32) mmol/L Anion Gap 7.0 (6-13) BUN 39 H (6-20) mg/dL Creatinine 2.2 H (0.6-1.3) mg/dL Estimated GFR (MDRD) 21 L (>89) Glucose 63 L (74-104) mg/dL Calcium 7.7 L (8.5-10.3) mg/dL Nasal Screen MRSA (PCR) NEGATIVE (NEGATIVE) Stl C. cayetanensis PCR Not Detected (Not Detected) Stool Rotavirus A PCR Not Detected (Not Detected) Stl Adenov F 40/41 PCR Not Detected (Not Detected) Stool Astrovirus (PCR) Not Detected (Not Detected) Stool Campylobacter PCR Not Detected (Not Detected) Stl C. diff Tox A/B PCR Not Detected (Not Detected) Stool Cryptosporidium PCR Not Detected (Not Detected) Stl Sh Tox Pr E STEC PCR Not Detected (Not Detected) Stool E coli O157 PCR Not applicable (Not Detected) Stl Enterotoxigenic E PCR Not Detected (Not Detected) Stool EPEC (PCR) Not Detected (Not Detected) Stl E. histolytica PCR Not Detected (Not Detected) Stool Giardia Lamblia PCR Not Detected (Not Detected) Stl P. shigelloides PCR Not Detected (Not Detected) Stool Salmonella PCR Not Detected (Not Detected) Stool Sapovirus (PCR) Not Detected (Not Detected) Stl Shigella/EIEC PCR Not Detected (Not Detected) St Y.enterocolitica PCR Not Detected (Not Detected) Stool Vibrio (PCR) Not Detected (Not Detected) Stl Vibrio cholerae PCR Not Detected (Not Detected) Stl Enteroaggr Ecoli PCR Not Detected (Not Detected) Stl Norovirus GI/GII PCR Not Detected (Not Detected) ABX Reporting Has patient been on IV antibiotics over the past 48 hours?: Yes Assessment/Plan Problem List (1) Colitis: Impression: Patient admitted with nausea, vomiting, abdominal tenderness, and diarrhea with blood present due to colitis. CT abdomen/pelvis completed on 02/10/25 showed "long segment bowel wall thickening involving the transverse, descending and sigmoid colon" suspicious for nonspecific colitis. Differential diagnosis includes ischemic colitis versus infectious source. Stool culture negative. Afebrile. Unable to identify precipitating ischemic event in history and cannot order CTA due to elevated creatinine to evaluate for ischemic colitis. Plan to continue supportive therapy while monitoring for signs of shock due to ischemic colitis. Day 2 of IV metronidazole q8hr and ciprofloxacin daily. PO pantoprazole continued. Continue ondansetron PRN for nausea/vomiting. Leukocytosis - WBC 24.2 in ED on 02/10/25 trending downward to 8.4 on 02/11/25. WBC 13.3 today. Hgb/Hct continues to trend downward at 9.2/28.6 - will continue to monitor with daily labs. 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 Asked patient about this diagnosis. She states that she received endoscopic treatment but did not receive any further treatment. (2) Hypotension: Impression: Hypotension likely due to volume depletion as a result of fluid loss/volume depletion from diarrhea secondary to colitis. Levophed gtt weaned and turned off overnight. BP remains stable. Qualifiers: Hypotension type: other hypotension type Qualified Code(s): I95.89 - Other hypotension (3) Acute kidney injury: Impression: Acute kidney injury secondary to severe dehydration/volume depletion as a result of diarrhea due to colitis. 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 Creatinine 3.9 in ED on 02/10/25. Review of chart shows prior to this admission, most recent creatinine was 1.4 on 09/13/24. Patient's creatinine is trending downward - most recent creatinine drawn today was 2.2. Will continue to monitor with daily labs. (4) Smoking 1/2 pack a day or less: Impression: Patient endorses smoking half a pack per day. She began smoking when she was 18 years old. Continue daily nicotine patch. (5) Poor appetite: Impression: Poor appetite secondary to colitis and food preferences. Patient ate 25% of breakfast and 0% of lunch. Patient reports poor appetite, attributing this to preferring home-cooking to the hospital food. Yesterday evening, she stated that her appetite has been poor since onset of symptoms. (6) Poorly fitting dentures: Impression: On admission, patient's speech impaired due to ill-fitting dentures making it difficult to understand speech due to lisping and slurring. Patient's stated that she is also having difficulty chewing. Family brought in home denture adhesive cream and issue now resolved.
--- NOTE | 2025-02-12 15:23 | OT Plan of Care ---
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 Adm to ICU for further monitoring. Cleared for OT evaluation. Met supine in bed, A&Ox4, anxious but willing to participate with therapy. Tremulous and ataxic at rest and with movement impairing safety and stability. Performed supine to sit MIN A, sit to stand and ambulation household distances ~15 ft using RW MIN-MOD A Cues for safety and RW management. Currently MIN A UB, MOD A LB ADL with full set up and increased time. Overall presents with decreased endurance, activity tolerance and ADL status. Will benefit from cont OT services during acute stay. Rec d/c to SNF at this time. Goals - Activities of Daily Living Improve Upper Extremity Modified Independent Dressing to: Improve Lower Extremity Modified Independent Dressing to: Improve Grooming/Hygiene to: Modified Independent Improve Bathing to: Modified Independent Improve Toileting to: Modified Independent Plan Treatment Frequency 1x/day -Discharge Recommendations Discharge Location [facility] Facility Transport Needs at Discharge [facility]
[2025-02-13 04:45] LABS: BASOPHILS % (AUTO) 0.4 %; EOSINOPHILS # (AUTO) 0.2 10^3/uL (0.0-0.7); EOSINOPHILS % (AUTO) 1.8 %; HCT - HEMATOCRIT 29.9 % (37.0-47.0); HGB - HEMOGLOBIN 9.7 g/dL (12.0-16.0); LYMPHOCYTES # (AUTO) 2.1 10^3/uL (1.5-3.5); LYMPHOCYTES % (AUTO) 22.6 %; MEAN CORPUSCULAR HEMOGLOBIN 30.9 pg (27.0-31.0); MEAN CORPUSCULAR HGB CONC 32.4 g/dL (32.0-36.0); MEAN CORPUSCULAR VOLUME 95.2 fL (81.0-99.0); MEAN PLATELET VOLUME 9.5 fL (7.9-10.8); MONOCYTES # (AUTO) 0.3 10^3/uL (0.0-1.0); MONOCYTES % (AUTO) 3.6 %; NEUTROPHILS # (AUTO) 6.6 10^3/uL (1.5-6.6); NEUTROPHILS % (AUTO) 71.2 %; PLT - PLATELET COUNT 177 10^3/uL (130-450); RED BLOOD COUNT 3.14 10^6/uL (4.20-5.40); WHITE BLOOD COUNT 9.3 x10^3/uL (4.8-10.8)
[2025-02-13 04:51] LABS: CALCIUM, IONIZED 1.24 mmol/L (1.09-1.30); VBG PH 7.282 (7.31-7.41)
[2025-02-13 05:06] LABS: CREATININE 1.7 mg/dL (0.6-1.3); MAGNESIUM 1.4 mg/dL (1.7-2.3); PHOSPHORUS 2.4 mg/dL (2.5-5.0); POTASSIUM 3.9 mmol/L (3.5-4.5)
[2025-02-13] MEDS: NEUTRA-PHOS 250 MG TABLET PO SCH (06:16)
[2025-02-13] MEDS: MAGNESIUM SULFATE 2 GRAM 2 GM/50 ML BAG IV SCH (06:17)
[2025-02-13] MEDS: BENZOCAINE/MENTHOL LOZENGE MM PRN (06:51)
[2025-02-13] MEDS: POTASSIUM CHLORIDE 20 MEQ TABLET PO ONE (08:12)
--- NOTE | 2025-02-13 08:19 | PT Plan of Care ---
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 Pt admitted to hospital with n/v, abdominal tenderness, and diarrhea with blood present due to colitis vs infectious etiology with associated ADRIANNA. Admitted to ICU for further monitoring and cleared for PT eval at this time. Upon PT eval, pt met walking in room with OT during OT eval. Pt agreeable to working with PT as well. Pt A& Ox4, tremulous and ataxic at rest and with acitity impairing safety and stability. Per OT, supine to sit transfer with minAx1. Pt observed during sit to stand and ambulation x15 ft with FWW and min to modAx1. Mild to mod ataxia during amb c FWW. Pt requires manual assist at pelvis d/t LOB upon turning. Benefits from cueing for walker mgmt and pathfinding. High fall risk per Tinetti score of 16/28, gait impairments and distractibility. Overall presents with decreased endurance, activity tolerance and ADL status. Pt will benefit from skilled PT in acute setting . When medically clear, PT rec dc to SNF as pt is a high fall risk, requires up to modAx1 and FWW for ambulation and is unable to access home d/t 14 steps to enter. Patient/ Family Goals Patient/Family Goals To carry the laundry, help with shopping, and sweep the floor without left shoulder and arm pain. Goals Improve bed mobility to: Modified Independent Improve supine to sit to: Modified Independent Improve sit to stand to: Contact Guard Improve pivot transfer ability Contact Guard to: Improve sit to supine to: Modified Independent Improve gait ability to: CGA Assistive Device Used: Front Wheeled Walker PT Plan of Care Frequency 1-2x/day Duration Until goals are met Discharge Recommendations Discharge Location Intermediate Facility DC Equipment Recommended Front wheeled walker Transport Needs at Discharge [facility] Other BLS d/t ataxia, high fall risk, confusion
[2025-02-13 08:48] VITALS: TEMP 97.7
[2025-02-13] MEDS: ONDANSETRON 4 MG/2 ML VIAL IVP PRN (09:33)
--- NOTE | 2025-02-13 11:21 | Discharge Summary ---
"Discharge Summary Admit Date: 02/11/25 Discharge Date: 02/13/25 Discharging Provider: Mariely Alvarenga MD Primary Care Provider: JODI Watt Code Status: Attempt Resuscitation DIAGNOSES Discharge Diagnoses with Status of Each Condition: 1. Large bowel colitis, possible ischemic colitis 2. Hypotension 3. Bloody diarrhea 3. Acute kidney injury superimposed on chronic CKD stage IIIb 4. Current tobacco abuse, unmotivated to quit 5. COPD 6. Poorly fitting dentures 7. History of peripheral vascular disease HPI History of Present Illness: Fany Ohara is a 79-year-old female presenting with worsening nausea, vomiting, and diarrhea that began 5 days ago. She reports noticing a large amount of blood in her diarrhea. She denies recent changes to diet. She has been eating at home and neighbor occasionally brings her food. She denies any known contact with sick people. Associated symptoms include abdominal tenderness and poor appetite. She reports that she has had similar episodes of abdominal pain and discomfort in the past. She reports that these episodes began following the of her three children in three subsequent years. Patient also endorses a previous diagnosis of spastic colon. Review of most recent PCP note does not mention this diagnosis. Past medical history includes history of CKD 3B, bilateral claudication, depression, hypertension, hyperlipidemia, low back pain with bilateral radiculopathy, muscle spasms, osteoarthritis, osteopenia, peripheral vascular disease s/p angioplasty and stenting, history of polychondritis that is currently in remission, tobacco dependency, and history of carcinoid rectal tumor. Patient is a current smoker. She endorses smoking half a pack per day, and she began smoking at 18 years old. Patient denies excessive alcohol use and any illicit drug use. Patient lives alone in an apartment in [place]. She has two sons that live locally and one son who lives in [place]. She states that her sons check-in on her regularly. In her free time, she enjoys doing puzzles. Son and [id number], who live in [place], at bedside. CONSULTS | PROCEDURES Consultations: Anesthesia for right IJ central line Procedures: 1. Abdomen pelvis CT with long segment bowel wall thickening in the colon suspicious for nonspecific colitis. Stable ectasia of the abdominal aorta. 2. Chest x-ray with no acute cardiopulmonary process 3. Repeat chest x-ray done after central line placement in the IJ shows interval placement of the right central venous catheter with distal tip projecting over the mid SVC. Compared to previous x-ray lung volumes are slightly decreased with mild bibasilar atelectasis 4. Blood cultures negative after 2 days for February 10 HOSPITAL COURSE Hospital Course: The patient was transferred to ICU because she was hypotensive. In spite of 7 L fluid boluses in the emergency room she was still hypotensive. Unfortunate there were no beds in the hospital and the patient stayed in the ER for close to a day. To treat the hypotension I had anesthesia placed a central line in her IJ. She was started on Levophed. Blood pressure was able to be stabilized overnight. She had already been on Cipro and Flagyl from the emergency room and those were continued. Stool cultures were sent and are pending at the time of discharge. Although she complained of severe bloody diarrhea, anywhere between 6-8 times a day at home, the patient did not have any further diarrhea. She does have mild diffuse abdominal pain but she says that is her baseline. She has had that ever since the of her children. She hated her food. Really did not want to eat it and family brought in food for her and she did eat that. P.o. intake was encouraged in the form of fluids. Her initial acute kidney injury was quite severe with a creatinine of 3.9. Baseline creatinine is 0.8- 1.0. After Levophed and IV fluids and antibiotics creatinine slowly came down. By the time of discharge she is 1.7 but she is still not at baseline. I told her to make sure she still drinks plenty of fluid at home. White cell count was initially elevated at 24,000. By discharge she was 9.3. The patient was adamant about going home. I asked her to please get up and walk in her room and demonstrate that she had at least baseline mobility. She is at least 14 steps to get up into her house and has to pass that test. While she was here she had a very devoted family. Son and [id number] were here daily. They state that they will help her. At discharge blood pressure is 158/85, pulse 94, respirations 30 with trying to walk around the room, O2 sat 91%. She is on room air. Room air sats vary between 90% to 96% at rest. She has not had a fever while here. And her blood pressure has been mildly hypertensive since coming off of the Levophed. When she is not trying to walk around the room and is at rest, respirations are between 17-21. She is a 5 foot 3 inch elderly female who looks her stated age. 63.5 kg. She is alert. Oriented to person, place, time and situation. Conversational style is abrupt. She jumps from topic to topic. Because she has poorly fitting dentures, sometimes it is difficult to understand her speech because she lisp or slurs as the dentures block her ability to communicate effectively. When she gets angry or agitated she also has an interesting head alyssa, with arm and shoulder shrugging. She looks like she is having choreoathetotic movements. But she says that that is not her baseline. It only happens when she is in pain or upset. Neck is shotty adenopathy. Lungs have coarse upper airway breath sounds. She does have a prolonged I to E ratio but no wheezing. No use of accessory muscles no rib retractions. PMI is normally placed and she has a regular rate and rhythm with a systolic ejection murmur. The abdomen is soft, tender on the left mid abdomen and left upper quadrant. She winces when I palpate but there is no rebound or guarding. She says that is her baseline pain. She is an obese pannus. Normal bowel sounds. Again no bloody diarrhea since she has been admitted. Extremities are with delayed capillary refill at 7 seconds for her toes. I do not feel pulses but her feet are warm. She is alert and oriented to person, place, time and situation. She reiterates and with the teach back mechanism confirms that she understands what I told her. She uses a cane at home and I am going to have her practice using a walker here before she leaves the door. She also needs to be able to ambulate to get 14 steps up into her house. She says that she has help at home through her kids and grandkids. Discharge medications will be Cipro and Flagyl for 4 more days. I have asked her to eat a low fiber low-fat diet. I have explained to her that I do think she may have had a bout of ischemic colitis and not infectious colitis. She needs to see her primary care provider in follow-up in the next 1 to 2 weeks and she should follow-up with the vascular surgeon who took care of her legs and put the stents in. I have also asked her to please, please stop smoking. She also may need a colonoscopy with biopsy to provide a diagnosis for the colitis. Greater than 30 minutes was spent coordinating discharge This document was made in part using voice recognition software. While efforts are made to proofread this document, sound alike and grammatical errors may occur. ALLERGIES Allergies Allergy/AdvReac Type Severity Reaction Status Date / Time No Known Drug Allergies Allergy Verified 02/10/25 13:09 MEDICATIONS Ambulatory Orders Medication Instructions Recorded Confirmed lisinopril 10 mg tablet 10 mg PO DAILY 09/30/24 02/11/25 naproxen sodium 220 mg capsule 220 mg PO Q8H PRN pain (scale 09/30/24 02/10/25 (Aleve) score 7-10) carboxymethylcellulose sodium 1 % 1 drp ophthalmic (eye) DAILY PRN 02/11/25 02/11/25 eye drops dry eye(s) doxylamine succinate 25 mg tablet 25 mg PO HS PRN sleep 02/11/25 02/11/25 (Unisom (doxylamine)) hydrochlorothiazide 12.5 mg tablet 12.5 mg PO DAILY 02/11/25 02/11/25 rosuvastatin 10 mg tablet 10 mg PO DAILY 02/11/25 02/11/25 ciprofloxacin HCl 250 mg tablet 500 mg (2 x 250 mg) PO BID #16 tabs 02/13/25 (Cipro) metronidazole 500 mg tablet 500 mg PO Q8H #14 tabs 02/13/25 PHYSICAL EXAM AT DISCHARGE Vital Signs: Vital Signs x48h Temp Pulse Resp BP Pulse Ox 02/13/25 10:00 94 30 H 158/85 H 91 L 02/13/25 09:00 77 17 177/94 H 90 L 02/13/25 08:00 36.5 C 85 21 132/88 H 92 02/13/25 07:00 102 H 26 H 118/98 H 96 02/13/25 06:00 88 23 145/73 H 92 02/13/25 05:00 36.7 C 81 22 135/91 H 94 02/13/25 04:00 88 20 163/79 H 93 LABS 02/13/25 04:33 02/13/25 04:33 Discharge Plan Discharge Patient Disposition: 06 Home Health Service Condition: Stable Prescriptions: New ciprofloxacin HCl [Cipro] 250 mg tablet 500 mg PO BID Qty: 16 0RF metronidazole 500 mg tablet 500 mg PO Q8H Qty: 14 0RF Continued hydrochlorothiazide 12.5 mg tablet 12.5 mg PO DAILY Patient Comments: take 1 tablet by mouth once daily IN THE MORNING rosuvastatin 10 mg tablet 10 mg PO DAILY Unisom (doxylamine) 25 mg tablet 25 mg PO HS PRN (Reason: sleep) carboxymethylcellulose sodium 1 % drops 1 drp ophthalmic (eye) DAILY PRN (Reason: dry eye(s)) lisinopril 10 mg tablet 10 mg PO DAILY naproxen sodium [Aleve] 220 mg capsule 220 mg PO Q8H PRN (Reason: pain (scale score 7-10)) Health Concerns: You came to the emergency room because of abdominal pain, nausea, vomiting and diarrhea. It been going on for 5 days. It had been abrupt in onset and the diarrhea had blood in it. You have a history of emphysema, and you still smoke half a pack per day. You also have a history of hardening of the arteries and a 38 had stents to the legs because of hardening of the arteries. The CAT scan in the emergency room showed you to have colitis from the last part of your colon. That part of your colon is supplied by an artery called the inferior mesenteric artery. We feel that you either had colitis from an infection or or losing blood supply to parts of your bowel and that is called ischemic colitis. You have responded to IV antibiotics. And support of your blood pressure with her medications. Your blood pressure is normal. You do not have a white cell count. You are able to ambulate in the room the way you usually do. You have really, really, really do not like her food so you have not been eating very much. You feel like you would do much better at home with your food at home. We feel that you are stable to go home but we want to caution you that you have a possible life-threatening illness in the form of blocked arteries to your bowel. You must stop smoking. Smoking is the worst thing you can do to your arteries. Our goal is that you could stop smoking, lose weight, eat a low-fat diet, and this will buy you some more time with arteries in your body. It will not be curative. You will still go on to have a heart attack or stroke or more ischemic bowel if your disease continues to progress but at least you can slow it down. Instructions for discharge include: 1. Please see your regular provider, Kemi Warren, in the next 1 to 2 weeks. 2. Please see the vascular surgeon that took care of you for your legs. Tell them that I would like an opinion about the artery supply to your bowel. See if there is anything they can do. We did not do an angiogram while you are in the hospital to look at the arteries because you are in severe renal failure. If you give a dye to a patient in renal failure, you could put them into dialysis. Your kidney function is gradually getting better and you may be able to do a dye study with the vascular surgeon in the next few weeks. 3. Please, please, please stop smoking Print Language: Yakut Patient Instructions: Colitis Ischemic Follow-up Care: Kemi Warren ARNP [Primary Care Provider] -"
[2025-02-13 11:23] VITALS: BP 135/75; O2SAT 95
--- NOTE | 2025-02-14 23:17 | ED Physician Documentation ---
ED Addendum Addendum Addendum: Patient in ED at change of shift awaiting bed opening. Beds were available in AM and Pt taken by hospitalist. Disposition: patient admitted to hospital in stable condition. Diagnosis: 1. Gastroenteritis with nausea and vomiting 2. ADRIANNA 3. general weakness Discharge Plan Discharge Patient Disposition: 64 [facility] DC/Xfer Condition: Stable Clinical Impression: Gastroenteritis, Nausea & vomiting, Acute kidney injury Interventions: ED Admission Assessment Last Done: 02/11/25 12:00
== END 2025-02-13 11:44 | disposition home health service (06) | DRG 394 ==
LOC: ED 13:03 → ICU 02-11 11:47
PROVIDERS: ADMIT Specialist; ATTEND Specialist